=== PATIENT | male | born 2000 ===

== ENCOUNTER 2018-08-29 09:09 | Emergency (ER) | payer OTHER, SELFPAY ==
[2018-08-29] MEDS ORDERED: Lidocaine 1% (PF) 30 ML VIAL ONE (09:35)
--- NOTE | 2018-08-29 10:44 | RAD ---
RIGHT KNEE 4 VIEWS: Date: 08/29/18 INDICATION: History of right knee injury. COMPARISON: None. FINDINGS: No acute fracture or subluxation is evident. No joint capsular distention is noted. Bone mineralizati on is normal appearing. IMPRESSION: No acute osseous abnormality. POS: CET
[2018-08-29] MEDS ORDERED: Bacitracin Zinc 1 Packet ONE (10:48)
== END 2018-08-29 11:00 | disposition home or self-care (01) ==
LOC: ERS 09:09
DX: L60.0 Ingrowing nail (principal); M25.561 Pain in right knee
CPT/HCPCS: 11750; J2001